=== PATIENT | female | born 1955 | race Caucasian/White ===

== ENCOUNTER 2019-08-04 09:12 | Outpatient (CLI) | payer OTHER ==
--- NOTE | 2019-08-04 10:39 | MRI ---
MRI brain noncontrast HISTORY: Memory loss. Dizziness. COMPARISON: 03/10/2011. FINDINGS: There is no evidence of acute intracranial hemorrhage or infarct. Ill-defined areas of incr eased FLAIR and T2 signal throughout the white matter of each cerebral hemisphere have progressed slightly since the prior study. The fluid intensity lesion within the anterior floor of the left middle cranial fossa, slightly effac ing the anterior margin of the left temporal lobe, is consistent with an arachnoid cyst and is stable. A tiny focus of blooming artifact within the left basal ganglia is consistent with a cavernoma. Ventr icles are unremarkable. Visualized paranasal sinuses remain well aerated. IMPRESSION: Slight interval progression of the prominent chronic ischemic small vessel disease since the 2011 exam. Arachnoid cyst in the left middle cranial fossa and other chronic-type findings are stable.
== END 2019-08-04 09:13 | disposition home or self-care (01) ==
LOC: SCSMRI 09:12
PROVIDERS: ATTEND Family Medicine
DX: R42 Dizziness and giddiness (principal); R29.6 Repeated falls; R41.3 Other amnesia; I67.82 Cerebral ischemia
CPT/HCPCS: 70551